=== PATIENT | female | born 1960 | race Caucasian/White ===

== ENCOUNTER → 2017-02-15 | Outpatient (CLI) | payer BC ==
[2017-02-15 07:23] VITALS: RESP 16; TEMP 98.1; BMI 39.1
--- NOTE | 2017-02-15 10:00 | USB ---
EXAMINATION TYPE: US discontinued breast bx LT DATE OF EXAM: 02/15/2017 COMPARISON: NONE HISTORY: Post stereotactic core biopsy Findings: Patient was immediately post stereotactic core biopsy with some degree of hemorrhage which may obscur e the underlying ultrasound lesions. 2 stereotactic target were performed. Ultrasound biopsy was to be rescheduled. complication. IMPRESSION: 1. Post 2 site stereotactic core biopsy with some overlapping hematoma. Ultrasound biopsy to be esdras eduled approximately 7-10 days post today's biopsy.
--- NOTE | 2017-02-15 10:39 | MM ---
EXAMINATION TYPE: MG stereo VAD BX LT DATE OF EXAM: 02/15/2017 COMPARISON: NONE CLINICAL HISTORY: Stereotactic biopsy 2 sites TECHNIQUE: Stereotactic guided core biopsy of left breast. FINDINGS: The procedure of stereotactic guided core biopsy was explained to the patient. Benefits, alternatives, and risks were discussed. An informed consent was then obtained. The shortness pathway for biopsy was chosen. Shortness pathway was . Entire procedure performed by the radiologist. A vacuum assisted biopsy gun was used to obtain multiple core samples at the 2 requested sites including the 10:00 position and 1:00 position. The patient tolerated the procedure well without any immediate complication. The patient was kept in the radiology department for short stay after the procedure and then discharged home in stable condition. Targeted calcifications are identified in specimen mammogram. Post biopsy mammogram shows the clip to appear in satisfactory position relative to the targeted area of concern on the preprocedure images. IMPRESSION: SUCCESSFUL, UNCOMPLICATED STEREOTACTIC GUIDED CORE BIOPSY OF AREA OF CONCERN IN THE BREAST, FULL PATHOLOGY RESULTS TO FOLLOW. Pathology Results: Malignant A. BREAST, LEFT, SITE A MEDIAL, CORE BIOPSY: FEATURES CONSISTENT WITH SCLEROTIC INTRADUCTAL PAPILLOMA. BACKGROUND FIBROCYSTIC CHANGES INCLUDING CYSTS, FIBROSIS , APOCRINE METAPLASIA, SCLEROSING ADENOSIS, CALCIFICATIONS, FOCAL SCAR AND CHRONIC INFLAMMATION. B. BREAST, LEFT, SITE B LATERAL, CORE BIOPSY: INVASIVE HIGH GRADE DUCTAL CARCINOMA WITH FOCAL FEATURES OF LYMPH/VASCULAR INVASION AND HIGH GRADE DUCTAL CARCINOMA IN SITU (DCIS). FOCAL FEATURES SUGGESTIVE OF ATYPICAL LOBULAR HYPERPLASIA (ALH). SEE SURGICAL PATHOLOGY CANCER CASE SUMMARY AND COMMENT. Recommendation Surgical consult of the left breast. LEONEL
[2017-02-15 11:29] VITALS: BP 141/89; PULSE 76
== END | disposition home or self-care (01) ==
LOC: RADMAMWWP 06:54
PROVIDERS: ATTEND Surgery
DX: D05.12 Intraductal carcinoma in situ of left breast (principal); N64.89 Other specified disorders of breast
CPT/HCPCS: 88305; 88342; 19081; 19082; 76641; A4648; J2001

== ENCOUNTER → 2017-02-24 | Day surgery (SDC) | payer BC ==
[2017-02-24 09:28] VITALS: BMI 37.5
[2017-02-24 11:49] VITALS: BP 138/81; PULSE 82; RESP 16; TEMP 97.8
--- NOTE | 2017-02-24 14:11 | USB ---
EXAMINATION TYPE: US biopsy breast VAD LT DATE OF EXAM: 02/24/2017 CLINICAL HISTORY: 56-year-old female with biopsy-proven left breast cancer via stereotactic biopsy on 02/15/2017. Ultrasound biopsy delayed due to hematoma formation at that time. Patient with a past history of right breast cancer. TECHNIQUE: Ultrasound guided core biopsy of the left breast. COMPARISON: 02/15/2017 and 01/24/2017 FINDINGS: The procedure of ultrasound guided core biopsy was explained to the patient. Benefits, alternatives, and risks were discussed. An informed consent was then obtained. Initial scanning redemonstrated the abnormally enlarged left axillary lymph node. A second adjacent enlarged axillary lymph node is also noted with cortex thickened to 8 mm. At the 11:00 position, there is an irregular heterogeneous collection suggestive of patient's recent biopsy site. At the 12:00 position, second larger irregular collection corresponds to the patient's more lateral biopsy site. The 12:30 irregular lesion seen on 2016 is no longer identified and likely corresponds to this area. At 12:30, there is a 4 x 3 mm hypoechoic lesion too small to characterize. The enlarged axillary node is targeted for biopsy. The patient was placed in supine positioning for imaging and for the procedure. The overlying skin was prepped and draped in usual sterile fashion. Lidocaine buffered with bicarbonate was used as anesthetic into the skin and subcutaneous tissue up to area of concern in the left axilla. Under ultrasound guidance, a 13-gauge vacuum-assisted mammotome Elite biopsy gun device was used to obtain 6 core samples. Following this, a spiral Hydromark clip was left in lesion. The patient tolerated the procedure well without any immediate complication. The patient was kept in the radiology department for short stay after the procedure and then discharged home in stable condition. Postbiopsy mammogram not performed given axillary position. IMPRESSION: Successful, uncomplicated ultrasound guided core biopsy of one of 2 abnormally enlarged left axillary lymph nodes; recent stereotactic biopsy proven left breast cancer. Full pathology results to follow. Pathology Results: Benign LYMPH NODE, LEFT AXILLA, CORE BIOPSY: FRAGMENTS OF BENIGN LYMPH NODE WITH LYMPHOID HYPERPLASIA. Recommendation Surgical consultation for biopsy proven left breast cancer. [facility]
== END ==
LOC: RADUSWWP 09:05
PROVIDERS: ATTEND Surgery
DX: R59.0 Localized enlarged lymph nodes (principal); C50.911 Malignant neoplasm of unspecified site of right female breast; Z85.3 Personal history of malignant neoplasm of breast
CPT/HCPCS: 88305; 76942; 38505; A4648; J2001

== ENCOUNTER 2017-04-22 09:50 | Day surgery (SDC) | payer BC ==
[2017-04-22 10:46] VITALS: BP 148/93; PULSE 92; RESP 16; TEMP 98.7
[2017-04-22] MEDS ORDERED: IODIXANOL 320 MG/ML 100 ML IV ONE (11:18)
[2017-04-22] MEDS ORDERED: SODIUM CHLORIDE 0.9% 250 ML IV ONE (11:18)
--- NOTE | 2017-04-22 12:28 | IR ---
Fluoroscopic portogram([facility]). HISTORY: Device malfunction. The patient presented to the CVL with a Chan needle within the port. Preliminary fluoroscopy demonst rated the catheter to be intact. There is no evidence of obstruction or extravasation. The distal tip of the catheter appears within the right ventricle. Additionally there is a small kink which is n onobstructing at the level of the rib cage. IMPRESSION: 1. No obstruction or extravasation. The tip of the catheter appears to be within the right ventricle and distally placed. Catheter replacement was recommended to referring physician. 2. There is a small kink in the proximal portion of the catheter but appears to be nonobstructing.
== END 2017-04-22 13:52 | disposition home or self-care (01) ==
LOC: CATHCVL 09:50
PROVIDERS: ATTEND Radiology Diagnostic Radiology
DX: T82.514A Breakdown (mechanical) of infusion catheter, initial encounter (principal); C50.212 Malignant neoplasm of upper-inner quadrant of left female breast; Z17.0 Estrogen receptor positive status [ER+]; Z15.01 Genetic susceptibility to malignant neoplasm of breast; Z90.13 Acquired absence of bilateral breasts and nipples; Z78.0 Asymptomatic menopausal state; Z80.3 Family history of malignant neoplasm of breast; Z98.51 Tubal ligation status; Z79.899 Other long term (current) drug therapy; Z91.09 Other allergy status, other than to drugs and biological substances
CPT/HCPCS: 36598; C1769; Q9967; J1642

== ENCOUNTER → 2017-04-23 | Outpatient (CLI) | payer BC ==
--- NOTE | 2017-04-26 06:39 | PE ---
EXAMINATION TYPE: PET CT fusion skull to thigh DATE OF EXAM: 04/23/2017 COMPARISON: NONE HISTORY: Right breast cancer treated 2006 with newly diagnosed left-sided breast cancer on biopsy Feb. History of bilateral mastectomy in March. TECHNIQUE: Following the intravenous administration of 13.977 mCi of F-18 FDG, whole body images are performed from the skull base to the midthigh. Images are reviewed on the computer in the coronal, axial, and sagittal planes. Reconstructed rotating images are created on independent workstation and reviewed on the computer. A noncontrast CT is performed in conjunction with the PET scan. SCAN: Initial Scan FINDINGS: SKULL BASE AND NECK: No suspicious hypermetabolic uptake is identified in the neck. CHEST, MEDIASTINUM, AND HILAR REGION: There are enlarged left axillary lymph nodes. For reference th ere is 1.9 x 1.5 cm axillary lymph node axial image 67, max SUV is 2.49. Additional enlarged lymph no de show minimal hypermetabolic uptake, max SUV is 2.65. No suspicious areas of abnormal hypermetaboli c uptake are identified. Mild uptake along course of Mediport catheter is presumed related to recent placement. Surgical changes from bilateral mastectomy with fairly moderate size fluid collections inferiorly in the remnant anterior chest wall are identified. Nondependent air is present in the right chest. Findi ngs presumed postsurgical seromas. There is right subclavian Mediport catheter with tip deep in right atrium. ABDOMEN AND PELVIS: No suspicious hypermetabolic uptake is seen in the abdomen or pelvis. OSSEOUS STRUCTURES: No suspicious hypermetabolic uptake is seen in osseous structures. OTHER CT: There is coronary artery calcification which is noted marker for coronary artery disease. There are small bleb medially in the right lung base. Scattered pelvic phleboliths are present. There is disc space narrowing and vacuum disc phenomenon at lumbosacral junction. IMPRESSION: Enlarged left axillary lymph nodes without definitive abnormal hypermetabolic uptake favo r reactive and/or presumed benign during recent surgical sampling. No convincing evidence of metastat ic disease noted.
== END | disposition home or self-care (01) ==
LOC: RADPETMAIN 07:29
PROVIDERS: ATTEND Internal Medicine Hematology & Oncology
DX: C50.212 Malignant neoplasm of upper-inner quadrant of left female breast (principal); R59.0 Localized enlarged lymph nodes
CPT/HCPCS: 78815; A9552

== ENCOUNTER → 2017-12-16 | Outpatient (CLI) | payer BC ==
[2017-12-16 08:02] LABS: Basophils % (A) 1 %; Eosinophils # (A) 0.1 k/uL (0-0.7); Eosinophils % (A) 4 %; HCT 42.7 % (34.0-46.0); HGB 13.8 gm/dL (11.4-16.0); Lymphocytes # (A) 0.7 k/uL (1.0-4.8); Lymphocytes % (A) 22 %; MCH 28.1 pg (25.0-35.0); MCHC 32.4 g/dL (31.0-37.0); MCV 86.7 fL (80.0-100.0); Mean Platelet Volume 6.7; Monocytes # (A) 0.2 k/uL (0-1.0); Monocytes % (A) 6 %; Neutrophils % (A) 65 %; Platelet Count 220 k/uL (150-450); RBC 4.92 m/uL (3.80-5.40); RDW 14.5 % (11.5-15.5)
[2017-12-16 08:04] LABS: Potassium 5.1 mmol/L (3.5-5.1)
== END | disposition home or self-care (01) ==
LOC: LABPAT 06:48
PROVIDERS: ATTEND Obstetrics & Gynecology
DX: Z01.812 Encounter for preprocedural laboratory examination (principal)
CPT/HCPCS: 36415; 80051; 82565; 82947; 84520; 85025; 86850; 86900; 86901; 87086

== ENCOUNTER 2017-12-26 07:08 | Observation (INO) | payer BC ==
[2017-12-15 17:10] VITALS: BMI 33.6
--- NOTE | 2017-12-22 14:36 | HP ---
HISTORY AND PHYSICAL This is a 57-year-old white female, 4, para 3-0-1-3 who presents for discussion and reporting of oophorectomy. Patient has the positive BRCA gene all positive. She has a history of recurrent breast cancer, being followed by Dr. Gastelum and the recommendation is to have the ovaries removed. The patient is menopausal and is not receiving hormone replacement therapy. She denies postmenopausal bleeding. She denies problems with intercourse, pelvic pain, urinary problems, bowel problems, vaginal discharge, or any vulvar changes. Last Pap smear was 2 years ago and within normal limits. REVIEW OF SYSTEMS: Otherwise negative. PAST MEDICAL HISTORY: Significant for hiatal hernia, right breast ductal carcinoma in situ 2004, recurrent breast cancer on the right side with large excisional biopsy. PAST SURGICAL HISTORY: Significant for adenoidectomy and tonsillectomy in 1967, breast biopsies of the right in 1979 and in 2004. Tubal ligation in the year 1999. ALLERGIES: None known. CURRENT MEDICATIONS: Motrin gwit-dyf-dxhaqer as needed. OBSTETRIC HISTORY: Significant for normal spontaneous vaginal delivery of 7 pounds 3 ounce, 7 pounds 11 ounce, 7 pounds 8 ounce infants. SOCIAL HISTORY: Patient is a financial analyst accountant, she is , her 's name is Richi. She has never been a tobacco smoker. She denies alcohol or drug use. PHYSICAL EXAM: This is a pleasant white female, she is 5 foot 7 inches, 217 pounds, blood pressure 124/80. HEENT exam reveals no thyromegaly, good dentition, no axillary adenopathy. Breasts are bilaterally symmetric to inspection, right breast with postsurgical changes. No nipple discharge, axillary adenopathy or skin changes. Left breast negative to palpation. Chest is clear to auscultation in all brambila, anteriorly and posteriorly. Cardiac exam reveals regular rate and rhythm with no murmur, click, or rub. Abdomen is mildly obese, no hepatosplenomegaly, no masses or lesions. Active bowel sounds. No CVA tenderness. Extremities reveal no edema. There are good peripheral pulses noted and good range of motion in the lower extremities. On pelvic examination, the external genitalia is well estrogenized and normal with no unusual discharge, inflammatory lesions or masses. There is a small grade 2 cystocele noted. There is a grade 2-3 uterine prolapse appreciated. Uterus is otherwise small, nontender, mobile, midline. There is no obvious cystocele. Adnexa are negative to palpation, no obvious adnexal masses. Rectal exam reveals good sphincter tone, no hemorrhoids, FIT negative stool. IMPRESSION: Positive BRCA testing, recommendation from Oncology to have ovaries removed. Patient has had three vaginal deliveries and has prolapse down below, therefore we will proceed with vaginal hysterectomy along with bilateral salpingo-oophorectomy. PLAN: Risks and benefits of the surgery have been discussed with the patient in detail. We have considered the option of laparoscopic assistance; however, I feel that the anatomy is amenable to straight vaginal approach. The risk of bleeding, infection, perforation or damage to bowel, bladder, ureters, or indeed any pelvic or abdominal organs is discussed in detail. All questions answered. Second opinion offered and declined. We will proceed as above at [facility] on Tuesday, December 26, 2017. MMODL / IJN: [id number] /
[~2017-12-26 07:08] MED LIST: HYDROmorphone 0.5 MG/0.5 ML SYRINGE IVP PRN; MIDAZOLAM 2 MG/2 ML VIAL IV PRN; SCOPOLAMINE 1.5MG/72HR PATCH TRANSDERM ONE; ceFAZolin IN SWFI 2 GM/20 ML SYRINGE IVP ONE
[2017-12-26] MEDS ORDERED: LIDOCAINE 1% 20 ML VIAL (10MG/ML) FOR IV START INTRADERMA ONE (08:14)
[2017-12-26] MEDS: LACTATED RINGERS 1,000 ML IV SCH ×2 (08:14→09:04)
[2017-12-26] MEDS ORDERED: fentaNYL (PF) 50 MCG/ML 2 ML AMP IVP ONE (08:21)
[2017-12-26] MEDS: ONDANSETRON 4 MG/2 ML VIAL IVP ONE ×2 (08:34→21:28)
[2017-12-26] MEDS: DEXAMETHASONE SOD PHOSPHATE 10 MG/ML 1 ML VIAL IV ONE ×2 (08:34→21:28)
[2017-12-26] MEDS ORDERED: diphenhydrAMINE 50 MG/ML 1 ML VIAL ONE (09:11)
[2017-12-26] MEDS ORDERED: LIDOCAINE 1% INJ 10MG/ML (20 ML MDV) ONE (09:11)
[2017-12-26] MEDS ORDERED: MIDAZOLAM 2 MG/2 ML VIAL ONE (09:11)
[2017-12-26] MEDS ORDERED: NEOSTIGMINE 1 MG/ML 10 ML VIAL ONE (09:11)
[2017-12-26] MEDS ORDERED: GLYCOPYRROLATE 0.2 MG/ML 2 ML VIAL ONE (09:11)
[2017-12-26] MEDS ORDERED: ROCURONIUM BROMIDE 10 MG/ML 10 ML VIAL IV ONE (09:11)
[2017-12-26] MEDS ORDERED: HYDROmorphone (PF) 1 MG/ML ONE (09:11)
[2017-12-26] MEDS ORDERED: ePHEDrine SULFATE/0.9% NACL/PF 50 MG/5 ML SYRINGE IV ONE (09:11)
[2017-12-26] MEDS ORDERED: fentaNYL (PF) 50 MCG/ML 2 ML AMP ONE (09:11)
[2017-12-26] MEDS ORDERED: PROPOFOL 10 MG/ML 20 ML VIAL IV ONE (09:11)
[2017-12-26] MEDS ORDERED: ACETAMINOPHEN IV (For NPO) 1,000 MG/100 ML VIAL ONE (09:11)
[2017-12-26] MEDS ORDERED: KETOROLAC 30 MG/ML 1 ML VIAL ONE (09:11)
[2017-12-26] MEDS ORDERED: MORPHINE SULFATE (PF) 0.3 MG/0.3 ML SYR ONE (09:11)
[2017-12-26] MEDS ORDERED: VASOPRESSIN 20 UNIT/ML 1 ML VIAL SQ ONE (09:37)
[2017-12-26] MEDS ORDERED: BACITRACIN 500 UNIT/GM OINT 28.4 GM TUBE TOPICAL ONE (09:40)
[2017-12-26] MEDS ORDERED: LACTATED RINGERS 1,000 ML IV ONE ×2 (10:33)
[2017-12-26] MEDS ORDERED: ZOLPIDEM 5 MG TAB PO PRN (10:56)
[2017-12-26] MEDS ORDERED: KETOROLAC 30 MG/ML 1 ML VIAL IVP PRN (10:56)
[2017-12-26] MEDS ORDERED: SIMETHICONE 80 MG CHEWABLE PO PRN (10:56)
[2017-12-26] MEDS ORDERED: METOCLOPRAMIDE 5 MG/ML 2 ML VIAL IVP PRN (10:56)
[2017-12-26] MEDS ORDERED: ONDANSETRON 4 MG/2 ML VIAL IVP PRN (10:56)
[2017-12-26] MEDS ORDERED: diphenhydrAMINE 50 MG/ML 1 ML VIAL IVP PRN (10:56)
--- NOTE | 2017-12-26 10:56 | P.OP ---
Date of Procedure: 12/26/17 Preoperative Diagnosis: same Postoperative Diagnosis: Vaginal hysterectomy, Bilateral oophorectomy, cystoscopy Procedure(s) Performed: vaginal hysterecotmy, bilateral oophorectomy Anesthesia: spinal Surgeon: Lia Diallo [employer] Managing Partner #1: Anna Moise Estimated Blood Loss (ml): 50 IV fluids (ml): 800 Urine output (ml): 100 Pathology: other (cervix and uterus, bilateral tubes and ovaries) Condition: stable Disposition: PACU Description of Procedure: Patient is brought to the operating suite. A Duramorph spinal is placed, and then anesthetic is administered as well. She is placed in the dorsal lithotomy position. The appropriate timeout is performed to assure proper patient and procedural identification. Bladder is drained for approximately 100 mL of clear yellow urine. Weighted speculum was placed into the vagina. Antibiotics are given. The cervix is grasped with a double-tooth tenaculum and brought into the operative field. It is injected circumferentially with a dilute Pitressin solution. A navajo blade scalpel is used to incise the mucosa circumferentially with a V like positioning in the back. At all times the mucosa is swept well from the operative field to avoid bladder and/or ureteral injury. Peritoneum is entered at 6:00 and suture tied with 2-0 Vicryl, held with a hemostat. Large billed speculum is now placed into the peritoneal cavity. The uterosacral cardinal ligaments are identified, clamped cut and held with a 0 Vicryl suture laterally. Please note that 0 Vicryl sutures used for the remaining portion of the procedure. Uterine vasculature is identified, clamped cut and suture ligated. There appears to be thrombosis involving the right uterine arteries and veins. 2 additional pedicles are taken superior to the vessels. Anterior peritoneum is entered at 12:00. The uterus is "walked out" posteriorly. It is large and bulky, with fibroids. The pedicles are grasped with Deanna clamps and the uterus and cervix are removed. The final pedicles are tied with 0 Vicryl suture in a Nerissa stitch, flashed, and retied for excellent hemostasis. At this time the right tube and ovary are visualized, brought into the surgical field gently with a Myrna clamp. An Endoloop is used across the tube and ovary. This was cinched and secured. A Deanna clamp was then used across the pedicle to remove the right tube and ovary and this is sent to pathology under separate cover. 0 Vicryl sutures used to once again secured the pedicle for excellent hemostasis. The same procedure is carried out on the left tube and ovary. Endoloop was used across the base, cinched and secured, and cut. Deanna clamp was used across the tube and ovary, it is removed and sent to pathology under separate cover. 0 Vicryl suture is used and another Nerissa stitch for excellent hemostasis. All pedicles are now visualized and noted to be hemostatically intact and dry. The speculum was switched to the shallow billed speculum. The 2-0 Vicryl suture is brought around in a pursestring fashion to close the peritoneal cavity. The previously held uterosacral cardinal ligaments are then brought across to incorporate the opposite ligament as well as vaginal mucosa. The vagina is closed with 3 additional apiusa-ui-ywism sutures of 0 Vicryl. Hemostasis is excellent. Vagina is packed with one-inch iodophor gauze with basic tracing. Melo catheter is placed in the urine is clear. Secondary to no index of suspicion for bladder injury, the cystoscopy is not performed. All sponge needle and enhancement counts are correct at the end of the procedure. Patient is brought back to recovery room in stable condition with a blood pressure 112/76, pulse 81. 100% O2 saturation.
[2017-12-26] MEDS ORDERED: NALBUPHINE 10 MG/ML VIAL (10ML MDV) IV ONE (11:39)
[2017-12-27] MEDS: LACTATED RINGERS 1,000 ML IV SCH (06:19)
[2017-12-27 07:57] VITALS: BP 109/71; PULSE 92; RESP 18; TEMP 98.6
--- NOTE | 2017-12-27 08:05 | P.DS ---
Providers Date of admission: 12/26/17 23:59 Expected date of discharge: 12/27/17 Attending physician: Lia Diallo Primary care physician: Stated None Hospital Course: This is a 57-year-old female who presented for hysterectomy and bilateral salpingo-oophorectomy, for history of positive BRCA1 testing. From a gynecologic standpoint patient has been stable and well. Decision was made to proceed with vaginal approach, please see my dictated history and physical for details. Patient was admitted yesterday and underwent vaginal hysterectomy, bilateral salpingo-oophorectomy. She did well intraoperatively, she received a spinal with Duramorph. Vagina was packed with iodoform gauze and Melo catheter placed to direct drainage. Please see my dictated operative note for details. This morning the patient feels very well. Vaginal packing has been removed, Melo catheter has been removed. She is voiding without difficulty, tolerating regular food. There is no vaginal bleeding. Her vital signs are stable and she has remained afebrile. Patient reports no pain. Extremities are negative for pain or edema. The abdomen is soft and nontender, active bowel sounds, no CVA tenderness. Patient is judged to be in very good condition for discharge home. She will use ejvk-lsa-jtegroz Advil or Aleve as needed for pain. I've asked her to call me with any fevers shakes or chills, vaginal bleeding, with any pain not alleviated by fgur-oka-pbghqyd products, or indeed with any concerns. No driving, no intercourse, no heavy lifting. Patient will follow-up with me in the office in 2 weeks and will call for that appointment. Patient Condition at Discharge: Good Plan - Discharge Summary Discharge Rx Participant: No New Discharge Prescriptions: No Action Multivitamins, Thera [Multivitamin (formulary)] 1 tab PO DAILY Letrozole [Femara] 2.5 mg PO DAILY Fexofenadine HCl [Audra Allergy] 180 mg PO DAILY PRN PRN Reason: ALLERGY SX Acetaminophen [Tylenol Extra Strength] 500 - 1,000 mg PO Q4-6H PRN PRN Reason: Pain Ibuprofen [Motrin Ib] 200 mg PO Q6H PRN PRN Reason: Pain Discharge Medication List Acetaminophen [Tylenol Extra Strength] 500 - 1,000 mg PO Q4-6H PRN 12/15/17 [ History] Fexofenadine HCl [Audra Allergy] 180 mg PO DAILY PRN 12/15/17 [History] Ibuprofen [Motrin Ib] 200 mg PO Q6H PRN 12/15/17 [History] Letrozole [Femara] 2.5 mg PO DAILY 12/15/17 [History] Multivitamins, Thera [Multivitamin (formulary)] 1 tab PO DAILY 12/15/17 [History ] Follow up Appointment(s)/Referral(s): Lia Diallo MD [STAFF PHYSICIAN] - 2 Weeks Discharge Disposition: HOME SELF-CARE
[2017-12-27] MEDS ORDERED: ACETAMINOPHEN TAB 325 MG TAB PO PRN (10:57)
--- NOTE | 2018-01-02 06:49 | P.PN ---
Progress Note - Text Progress Note Date: 12/27/17 patient evaluated post duramorph spinal denies any complaints primary team to follow, anesthesia sign off
== END 2017-12-27 08:40 | disposition home or self-care (01) ==
LOC: OR 07:08 → 4FBP 10:56 → OR 23:59 → 4FBP 23:59
PROVIDERS: ADMIT Obstetrics & Gynecology; ATTEND Obstetrics & Gynecology
DX: Z40.02 Encounter for prophylactic removal of ovary(s) (principal); D25.9 Leiomyoma of uterus, unspecified; N80.0 Endometriosis of uterus; K44.9 Diaphragmatic hernia without obstruction or gangrene; N81.2 Incomplete uterovaginal prolapse; Z98.51 Tubal ligation status; Z85.3 Personal history of malignant neoplasm of breast; Z90.13 Acquired absence of bilateral breasts and nipples; Z92.21 Personal history of antineoplastic chemotherapy; Z78.0 Asymptomatic menopausal state
CPT/HCPCS: 58262; 88307; G0378 ×2; J2250; J1200; J1100; J2300; J2710; J2405; J2001; J2274; J3010; J1885; J1170; J0131; J2704; J0690; 86850; 86900; 86901

== ENCOUNTER → 2018-06-23 | Outpatient (CLI) | payer BC ==
--- NOTE | 2018-06-23 13:17 | US ---
EXAMINATION TYPE: US abdomen complete DATE OF EXAM: 06/23/2018 COMPARISON: NONE CLINICAL HISTORY: R10.13 Epigastric pain. epigastric pain for 2 months. History of breast cancer EXAM MEASUREMENTS: Liver Length: 15.6 cm Gallbladder Wall: 0.3 cm CBD: 0.3 cm Spleen: 12.2 cm Right Kidney: 10.7 x 3.7 x 4.9 cm Left Kidney: 11.9 x 4.9 x 6.0 cm Technical limitations due to large amount of overlying bowel content Pancreas: visualized portions appear wnl Liver: Coarse echotexture is present. Gallbladder: no evidence of stones Evidence for sonographic Donahue's sign: no CBD: appears wnl Spleen: wnl Right Kidney: no evidence of hydronephrosis Left Kidney: no evidence of hydronephrosis Upper IVC: wnl Abd Aorta: wnl Kidneys show normal cortical medullary differentiation. There is no ascites. IMPRESSION: There may be underlying hepatic steatosis, hepatocellular disease.
== END | disposition home or self-care (01) ==
LOC: RADUSWWP 09:31
PROVIDERS: ATTEND Internal Medicine Hematology & Oncology
DX: R10.13 Epigastric pain (principal)
CPT/HCPCS: 76700

== ENCOUNTER → 2019-12-19 | Outpatient (CLI) | payer BC ==
--- NOTE | 2019-12-19 10:41 | XR ---
EXAMINATION TYPE: XR chest 2V DATE OF EXAM: 12/19/2019 COMPARISON: NONE HISTORY: Breast cancer, C 50.212, bilateral chest wounds TECHNIQUE: Frontal and lateral views of the chest are obtained. FINDINGS: There is no focal air space opacity, pleural effusion, or pneumothorax seen. The cardiac silhouette size is within normal limits. The osseous structures are intact. Bilateral mastectomy ch anges are present. IMPRESSION: No acute cardiopulmonary process.
== END | disposition home or self-care (01) ==
LOC: RADXRMAIN 08:35
PROVIDERS: ATTEND Internal Medicine Hematology & Oncology
DX: C50.212 Malignant neoplasm of upper-inner quadrant of left female breast (principal); K12.30 Oral mucositis (ulcerative), unspecified; K12.1 Other forms of stomatitis; Z15.01 Genetic susceptibility to malignant neoplasm of breast; Z71.3 Dietary counseling and surveillance
CPT/HCPCS: 71046

== ENCOUNTER → 2021-07-29 | Outpatient (CLI) | payer BC ==
--- NOTE | 2021-07-29 08:51 | XR ---
EXAMINATION TYPE: XR chest 2V DATE OF EXAM: 07/29/2021 COMPARISON: 12/19/2019 TECHNIQUE: PA and lateral views submitted. HISTORY: Cough FINDINGS: The lungs are clear and there is no pneumothorax or pleural effusion. Vague density in the left miguel hilar region. Osseous structures are stable. Heart size normal. No overt failure. IMPRESSION: 1. Vague left perihilar density appears to correspond to an anterior area of increased density in the lateral view. Recommend CT scan chest.
== END | disposition home or self-care (01) ==
LOC: RADXRMAIN 08:33
PROVIDERS: ATTEND Internal Medicine Hematology & Oncology
DX: J98.4 Other disorders of lung (principal); Z14.8 Genetic carrier of other disease
CPT/HCPCS: 71046

== ENCOUNTER → 2021-08-07 | Outpatient (CLI) | payer BC ==
--- NOTE | 2021-08-07 09:22 | CT ---
EXAMINATION TYPE: CT chest w con DATE OF EXAM: 08/07/2021 COMPARISON: PET CT 04/23/2017 and chest x-ray 07/29/2021 HISTORY: 60-year-old male Abnormal Chest Xray TECHNIQUE: Contiguous axial scanning of the chest after the administration of 70 mL of Isovue 300. C oronal/sagittal reconstructions performed. CT DLP: 591mGycm. Automatic exposure control utilized for a dose reduction. FINDINGS: Heart normal size without pericardial effusion. LAD coronary artery calcifications are present. Aorta normal caliber with conventional branching anatomy. No thoracic lymphadenopathy by CT size criteria. Evidence of prior bilateral mastectomies. More extensive scar tissue on the left with some contour lo bulation to the skin surface. This may have accounted for the radiographic density. Some mild subpleural interstitial thickening along the anterior aspect of the lungs likely post radia tion therapy or other posttreatment change. Mild dependent atelectasis. There is a 4 mm and 6 mm left basilar pulmonary nodule, both on axial image 39 not clearly identified on the PET/CT at 2018. These areas are nonspecific and should be reassessed in 3-6 months. Tiny hiatal hernia. Visualized upper abdomen shows anterior splenule otherwise without gross abnormal ity. Bones: Mild degenerative disc disease. No osseous destructive process. IMPRESSION: 1. Status post bilateral mastectomies. Considerable scar tissue on the left causing contour deformity to the skin surface. This may account for the radiographic density. 2. A couple left basilar pulmonary nodules measuring 4 mm and 6 mm. Follow-up in 3 - 6 months to reas sess. Otherwise, no acute pulmonary process. 3. CAD with LAD coronary artery calcifications. Tiny hiatal hernia.
== END | disposition home or self-care (01) ==
LOC: RADCTMAIN 07:35
PROVIDERS: ATTEND Internal Medicine Hematology & Oncology
DX: R91.8 Other nonspecific abnormal finding of lung field (principal); I25.10 Atherosclerotic heart disease of native coronary artery without angina pectoris; K44.9 Diaphragmatic hernia without obstruction or gangrene
CPT/HCPCS: 71260; Q9967

== ENCOUNTER → 2022-01-28 | Outpatient (CLI) | payer BC ==
--- NOTE | 2022-01-28 15:34 | CT ---
EXAMINATION TYPE: CT chest w con DATE OF EXAM: 01/28/2022 COMPARISON: 08/07/2021 HISTORY: breast CA CT DLP: 395 mGycm Automated exposure control for dose reduction was used. CONTRAST: CT scan of the chest is performed with IV Contrast, patient injected with 100 mL of Isovue 300. FINDINGS: LUNGS: The lungs are grossly clear, there is no concerning parenchymal mass or nodule identified. T here is no pleural effusion or pneumothorax seen. The tracheobronchial tree is patent. MEDIASTINUM: There are no greater than 1 cm hilar or mediastinal lymph nodes. No pericardial effusi on is seen. Thoracic aorta is of normal caliber. The heart is not enlarged. UPPER ABDOMEN: No significant abnormality appreciated. OTHER: Bilateral mastectomy changes noted. IMPRESSION: No evidence of metastatic disease to the chest.
== END | disposition home or self-care (01) ==
LOC: RADCTMAIN 14:31
PROVIDERS: ATTEND Internal Medicine Hematology & Oncology
DX: C50.212 Malignant neoplasm of upper-inner quadrant of left female breast (principal)
CPT/HCPCS: 71260; Q9967

== ENCOUNTER → 2022-08-25 | Outpatient (CLI) | payer BC ==
--- NOTE | 2022-08-26 10:52 | CT ---
EXAMINATION TYPE: CT abdomen pelvis w con DATE OF EXAM: 08/25/2022 COMPARISON: 04/24/1999 HISTORY: RLQ pain, h/o brest CA CT DLP: 1589 mGycm Automated exposure control for dose reduction was used. CONTRAST: CT scan of the abdomen pelvis is performed with IV Contrast, patient injected with 100 mL of Isovue 3 00. FINDINGS- LUNG BASES- lung bases are clear. On image 1 there is soft tissue prominence costochondral junction on the right is retrospectively stable dating back to 2012. Therefore this likely is chronic. Coronar y artery calcification noted. LIVER/GB- diffuse low attenuation in the liver compatible with hepatic cirrhosis. Portal vein paten t. PANCREAS- No gross abnormality is seen. SPLEEN- No gross abnormality is seen. Small accessory spleen incidentally noted. ADRENALS- No gross abnormality is seen. KIDNEYS/BLADDER- no hydronephrosis or nephrolithiasis. There is a 4 mm hypodensity in the posterior r ight mid to lower pole renal cortex too small to characterize statistically most likely related to a simple cyst.. BOWEL- no evidence of bowel obstruction. Changes of diverticulosis but no CT evidence of diverticuli tis. Appendix is normal. Moderate retained stool or correlate for constipation. Small hiatal hernia. Soft tissue fullness near the ileocecal valve may be related to retained products distention. Correla te with colonoscopy as clinically warranted LYMPH NODES- No greater than 1cm abdominal or pelvic lymph nodes are appreciated. There are multiple shoddy lymph nodes seen in the retroperitoneum and peripancreatic region measuring less than 1 cm in short axis. OSSEOUS STRUCTURES- hypertrophic and degenerative changes spine most marked at L5-S1 OTHER- there is a retroaortic left renal vein. Aorta normal caliber with mild atherosclerotic change . Correlate for prior hysterectomy. IMPRESSION- 1. No acute process. 2. Small hiatal hernia. 3. Hepatic steatosis. 4. Diverticulosis. 5. Partially included in the [id number] on image 1 is a soft tissue prominence related to the ante rior margin of the right rib cage near the costochondral junction which is stable dating back to 2021 and therefore most likely benign. 6. There is soft tissue prominence in the region of the right ileocecal valve. This may be related to incomplete distention and bowel content. Consider colonoscopy as clinically warranted to exclude oth er etiologies
== END | disposition home or self-care (01) ==
LOC: RADCTMAIN 14:55
PROVIDERS: ATTEND Internal Medicine Hematology & Oncology
DX: C50.212 Malignant neoplasm of upper-inner quadrant of left female breast (principal); K12.30 Oral mucositis (ulcerative), unspecified; K76.0 Fatty (change of) liver, not elsewhere classified; K44.9 Diaphragmatic hernia without obstruction or gangrene; K57.30 Diverticulosis of large intestine without perforation or abscess without bleeding; Z14.8 Genetic carrier of other disease; Z71.3 Dietary counseling and surveillance
CPT/HCPCS: 74177; Q9967

== ENCOUNTER → 2024-04-26 | Outpatient (CLI) | payer BC ==
--- NOTE | 2024-04-26 13:04 | BD ---
EXAMINATION TYPE: Axial Bone Density DATE OF EXAM: 04/26/2024 CLINICAL HISTORY: 63 years old Female. ICD-10 CODE: M81.0 AGE-RELATED OSTEOPOROSIS W/O CURRENT PATHO LOGY , Additional History: Height: 66 Weight: 220.7 FRAX RISK QUESTIONS: Alcohol (3 or more units per day): no Family History (Parent hip fracture): no Glucocorticoids (More than 3mos): no (Ex: prednisone, prednisolone, methylprednisolone, dexamethasone, and hydrocortisone). History of Fracture in Adulthood: no Secondary Osteoporosis: 1. Type 1 Diabetes: no 2. Hyperthyroidism: no 3. Menopause before 45: no 4. Malnutrition: no 5. Chronic liver disease: no Rheumatoid Arthritis: no Current Tobacco Use: no RISK FACTORS HISTORY OF: Hip Fracture (Right/Left): no Spine Fracture: no History of Wrist Fracture: no Surgery to Spine/Hip(right/left)/Wrist (right/left): no MEDICATIONS: Thyroid Medications: no Osteoporosis Medications: no Breast Cancer x2 EXAM MEASUREMENTS: Bone mineral densitometry was performed using the [employer]. Bone mineral density as measured about the Lumbar spine is: ----- L1-L4(G/cm2): 1.405 T Score Values are as follows: ----- L1: 0.9 ----- L2: 1.3 ----- L3: 2.6 ----- L4: 2.4 ----- L1-L4: 1.9 Z Score Values are as follows: ----- L1: 1.1 ----- L2: 1.5 ----- L3: 2.8 ----- L4: 2.6 ----- L1-L4: 2.1 Baseline Study Bone mineral density about the R hip (g/cm2): 1.181 Bone mineral density about the L hip (g/cm2): 1.161 T Score values are as follows: -----R Neck: 0.4 -----L Neck: 0.8 -----R Total: 1.4 -----L Total: 1.2 Z Score values are as follows: -----R Neck: 1.0 -----L Neck: 1.4 -----R Total: 1.6 -----L Total: 1.4 Baseline Study FRAX%s: The graph provided illustrates a 5.6% chance for a major osteoporotic fx and a 0.1% chance fo r the hips probability for fx in 10 years time. IMPRESSION: Normal (Values between +1 and -1 indicate normal bone mass). Consider repeating this study in 5 year s or sooner if there is some new clinical indication. NOTE: T-SCORE=SD OF THE YOUNG ADULT MEAN. [facility], , 04/26/2024 1:02 PM
== END | disposition home or self-care (01) ==
LOC: RADBDWWP 12:30
PROVIDERS: ATTEND Internal Medicine Hematology & Oncology
DX: M81.0 Age-related osteoporosis without current pathological fracture (principal)
CPT/HCPCS: 77080